=== PATIENT | female | born 1965 | race African-American/Black ===

== ENCOUNTER 2018-11-07 01:25 | Inpatient (IN) ==
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
[2018-11-07 03:33] LABS: Amphetamine Screen,Urine Neg (Neg); Barbiturate Screen,Urine Neg (Neg); Cannabinoid Screen,Urine Neg (Neg); Cocaine Screen,Urine Pos (Neg)
[2018-11-07 03:33] LABS: Baso # (Auto) 0.1 th/mm3 (0.0-0.2); Baso % (Auto) 0.6 % (0.0-2.0); Eos % (Auto) 0.5 % (0.0-4.0); Hematocrit 43.1 % (35.0-46.0); Lymph # (Auto) 4.3 th/mm3 (1.0-4.8); Lymph % (Auto) 53.2 % (9.0-44.0); Mean Corpuscular HGB Conc 34.8 % (32.0-36.0); Mean Corpuscular Volume 94.8 fL (80.0-100.0); Mean Platelet Volume 7.1 fL (7.0-11.0); Mono # (Auto) 0.6 th/mm3 (0.0-0.9); Mono % (Auto) 6.8 % (0.0-8.0); Neut # (Auto) 3.2 th/mm3 (1.8-7.7); Neut % (Auto) 38.9 % (16.0-70.0); Platelet Count 432 th/mm3 (150-450); Red Blood Count 4.55 mil/mm3 (4.00-5.30); Red Cell Distribution Width 13.9 % (11.6-17.2); White Blood Count 8.1 th/mm3 (4.0-11.0)
[2018-11-07 03:38] LABS: Opiate Screen,Urine Neg (Neg)
[2018-11-07 03:48] LABS: Alanine Aminotransferase 32 U/L (10-53); Albumin 3.6 g/dL (3.4-5.0); Anion Gap 8 meq/L (5-15); Aspartate Aminotransferase 35 U/L (15-37); Blood Urea Nitrogen 8 mg/dL (7-18); Carbon Dioxide 25.3 meq/L (21.0-32.0); Chloride 107 meq/L (98-107); Glomerular Filtration Rate 84 mL/min (>89); Glucose,Random 86 mg/dL (74-106); Potassium 3.5 meq/L (3.5-5.1); Sodium 140 meq/L (136-145)
[2018-11-07 03:53] LABS: Alcohol 230 mg/dL (0-5)
[2018-11-07 03:58] LABS: Alkaline Phosphatase 74 U/L (45-117); Total Protein 8.7 g/dL (6.4-8.2)
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
[2018-11-07] MEDS: traZODone 50 MG Tablet PO SCH (21:12)
[2018-11-07] MEDS: levETIRAcetam 500 MG Tablet PO SCH (21:12)
[2018-11-08] MEDS: Venlafaxine XR 75 MG Capsule PO SCH (08:28)
[2018-11-08] MEDS: levETIRAcetam 500 MG Tablet PO SCH ×2 (08:29→21:39)
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
[2018-11-08 10:32] LABS: Calcium 8.8 mg/dL (8.5-10.1); Carbon Dioxide 24.9 meq/L (21.0-32.0); Chol/HDL Ratio 3.62 Ratio; Potassium 3.4 meq/L (3.5-5.1)
[2018-11-08 16:44] LABS: Hemoglobin A1c 5.5 % (4.3-6.0)
[2018-11-08] MEDS: traZODone 50 MG Tablet PO SCH (21:39)
[2018-11-09] MEDS ORDERED: Acetaminophen 325 MG Tablet PO PRN (02:21)
[2018-11-09 05:51] VITALS: BP 120/80; PULSE 62; RESP 16; TEMP 97.8; O2SAT 96
[2018-11-09] MEDS: Venlafaxine XR 75 MG Capsule PO SCH (08:43)
[2018-11-09] MEDS: levETIRAcetam 500 MG Tablet PO SCH (08:43)
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
== END 2018-11-09 12:55 | disposition home or self-care (01) | DRG 882 ==
LOC: EDBD → NEPB 01:25 → NEDA 13:03 → H260 14:51
PROVIDERS: ADMIT Psychiatry & Neurology Child & Adolescent Psychiatry; ATTEND Psychiatry & Neurology Child & Adolescent Psychiatry